=== PATIENT | female | born 1990 ===

== ENCOUNTER 2017-02-26 00:51 | Inpatient (IN) | payer MEDICAID, OTHER ==
--- NOTE | 2017-02-26 01:31 | ED PDOC ---
Arrival/HPI - General Time Seen by Provider: 02/26/17 00:59 Historian: Patient - History of Present Illness Narrative History of Present Illness (Text): 02/26/17 01:31 Ruben Ndiaye is a 26 year old female who presents to the ED brought in by EMS for possible overdose tonight. Patient states tonight she took multiple Midol tablets tonight, unable to give an exact number. Patient denies any fever, chills, chest pain, shortness of breath, nausea, vomiting, diarrhea, urinary symptoms, back pain, neck pain, headache, dizziness, or any other complaints. Time/Duration: Other (tonight) Symptom Course: Unchanged Activities at Onset: Rest, Light Context: Home Past Medical History - Provider Review Nursing Documentation Reviewed: Yes Family/Social History - Physician Review Nursing Documentation Reviewed: Yes Family/Social History: No Known Family HX Allergies/Home Meds Allergies/Adverse Reactions: Allergies No Known Allergies Allergy (Unverified 02/26/17 01:24) Home Medications: Home Meds Medication Instructions Recorded Confirmed No Known Home Med 02/26/17 02/26/17 Review of Systems - Physician Review All systems were reviewed & negative as marked: Yes - Review of Systems Constitutional: Normal. absent: Fevers Eyes: Normal ENT: Normal Respiratory: Normal. absent: SOB, Cough Cardiovascular: Normal. absent: Chest Pain Gastrointestinal: Normal. absent: Abdominal Pain, Diarrhea, Nausea, Vomiting Genitourinary Female: Normal. absent: Dysuria, Frequency, Hematuria, Urine Output Changes Musculoskeletal: Normal. absent: Back Pain, Neck Pain Skin: Normal. absent: Rash Neurological: Normal. absent: Headache, Dizziness Endocrine: Normal Hemo/Lymphatic: Normal Psychiatric: Normal Physical Exam Vital Signs Reviewed: Yes Vital Signs Temp Pulse Resp BP Pulse Ox 02/26/17 04:06 67 23 02/26/17 02:58 98.0 F 66 16 116/65 100 02/26/17 01:01 98.0 F 65 16 123/69 100 Temperature: Afebrile Blood Pressure: Normal Pulse: Regular Respiratory Rate: Normal Appearance: Positive for: Well-Appearing, Non-Toxic, Comfortable Pain Distress: None Mental Status: Positive for: Alert and Oriented X 3 - Systems Exam Head: Present: Atraumatic, Normocephalic Pupils: Present: PERRL Extroacular Muscles: Present: EOMI Conjunctiva: Present: Normal Mouth: Present: Moist Mucous Membranes Neck: Present: Normal Range of Motion Respiratory/Chest: Present: Clear to Auscultation, Good Air Exchange. No: Respiratory Distress, Accessory Muscle Use Cardiovascular: Present: Regular Rate and Rhythm, Normal S1, S2. No: Murmurs Abdomen: Present: Normal Bowel Sounds. No: Tenderness, Distention, Peritoneal Signs Back: Present: Normal Inspection Upper Extremity: Present: Normal Inspection. No: Cyanosis, Edema Lower Extremity: Present: Normal Inspection. No: Edema Neurological: Present: GCS=15, CN II-XII Intact, Speech Normal Skin: Present: Warm, Dry, Normal Color. No: Rashes Psychiatric: Present: Alert, Oriented x 3, Normal Insight, Normal Concentration Medical Decision Making ED Course and Treatment: 02/26/17 01:31 Impression: 26 year old female brought in for possible overdose. Differential Diagnosis include but are not limited to: overdose Plan: -- EKG -- Labs, alcohol level -- Urinalysis, urine durg screen -- Reassess and disposition Progress Notes: Reviewed EKG, sinus bradycardia at [address]-segment elevations or depressions, no T-wave inversions, normal intervals. 02/26/17 02:[address] Bryson, who is aware and agrees to evaluate pt for ICU admission. 02/26/17 03:[address] Bryson, present in ED to evaluate pt. Accepts pt in to hospitalist service. Pt will be admitted to the ICU for acetaminophen overdose. - Lab Interpretations Lab Results: 02/26/17 02:00 02/26/17 02:00 Lab Results 02/26/17 02:00: WBC 6.9, RBC 4.27, Hgb 13.1, Hct 37.4, MCV 87.6, MCH 30.7, MCHC 35.0, RDW 12.9, Plt Count 336, MPV 9.1, Gran % 66.0, Lymph % (Auto) 28.4, [place] % (Auto) 5.4, Eos % (Auto) 0.1 L, Baso % (Auto) 0.1, Gran # 4.54, Lymph # 2.0, [place] # 0.4, Eos # 0.0, Baso # 0.01, Sodium 138, Potassium 4.0, Chloride 106, Carbon Dioxide 22, Anion Gap 14, BUN 10, Creatinine 0.8, Est GFR ( Amer) > 60, Est GFR (Non-Af Amer) > 60, Random Glucose 96, Calcium 9.3, Total Bilirubin 0.5, AST 27, ALT 12, Alkaline Phosphatase 89, Total Protein 8.0, Albumin 4.2, Globulin 3.8, Albumin/Globulin Ratio 1.1, Salicylates < 1 L, Acetaminophen 54.0 H*, Alcohol, Quantitative < 10 02/26/17 01:50: Urine Color Yellow, Urine Appearance Clear, Urine pH 6.0, Ur Specific [place] 1.025, Urine Protein Negative, Urine Glucose (UA) Negative, Urine Ketones Negative, Urine Blood Moderate H, Urine Nitrate Negative, Urine Bilirubin Negative, Urine Urobilinogen 0.2, Ur Leukocyte Esterase Negative, Urine RBC 0 - 2, Urine WBC 1 - 3, Ur Epithelial Cells 3 - 4, Urine Bacteria Small, Urine HCG, Qual Negative, Urine Opiates Screen Negative, Urine Methadone Screen Negative, Ur Barbiturates Screen Negative, Ur Phencyclidine Scrn Negative , Ur Amphetamines Screen Negative, U Benzodiazepines Scrn Negative, U Oth Cocaine Metabols Negative, U Cannabinoids Screen Negative I have reviewed the lab results: Yes - EKG Interpretation Interpreted by ED Physician: Yes Type: 12 lead EKG - Medication Orders Current Medication Orders: Sodium Chloride (Sodium Chloride 0.9%) 1,000 mls @ 125 mls/hr IV .Q8H [facility] Last Admin: 02/26/17 15:00 Dose: 125 MLS/HR eMAR Start Stop Document 02/26/17 15:00 HUDSON (Rec: 02/26/17 17:56 HUDSON [id number]) Intravenous Solution Start Date 02/26/17 Start Time 15:00 End Date 02/26/17 Ketorolac Tromethamine (Toradol) 15 mg IVP DAILY PRN PRN Reason: Pain, severe (8-10) Pantoprazole Sodium (Protonix Inj) 40 mg IVP DAILY [facility] Last Admin: 02/26/17 09:13 Dose: 40 MG IVP Administration Document 02/26/17 09:13 HUDSON (Rec: 02/26/17 09:13 HUDSON [id number]) Charges for Administration # of IVP Administrations 1 Discontinued Medications Acetylcysteine 8,800 mg/ (Dextrose) 244 mls @ 200 mls/hr IV .Q1H14M ONE Stop: 02/26/17 03:49 Last Admin: 02/26/17 03:41 Dose: 200 MLS/HR eMAR Start Stop Document 02/26/17 03:41 RJR (Rec: 02/26/17 03:41 RJR [id number]) Intravenous Solution Start Date 02/26/17 Start Time 03:41 End Date 02/26/17 End time 04:41 Total Infusion Time 60 Acetylcysteine 2,900 mg/ (Dextrose) 514.5 mls @ 125 mls/hr IV .Q4H7M ONE Stop: 02/26/17 06:44 Last Admin: 02/26/17 04:44 Dose: 125 MLS/HR eMAR Start Stop Document 02/26/17 04:44 AOM (Rec: 02/26/17 04:45 AOM [id number]) Intravenous Solution Start Date 02/26/17 Start Time 04:44 End Date 02/26/17 End time 08:51 Total Infusion Time 247 Acetylcysteine 5,900 mg/ (Dextrose) 1,029.5 mls @ 62.5 mls/hr IV .[id number] ONE Stop: 02/26/17 19:07 Last Admin: 02/26/17 08:51 Dose: 62.5 MLS/HR eMAR Start Stop Document 02/26/17 08:51 CRUZE (Rec: 02/26/17 09:20 CRUZE [id number]) Intravenous Solution Start Date 02/26/17 Start Time 08:51 End Date 02/27/17 End time 01:20 Total Infusion Time 989 Ketorolac Tromethamine (Toradol) 15 mg IVP Q6 PRN PRN Reason: Pain, moderate (4-7) Ketorolac Tromethamine (Toradol) 15 mg IVP DAILY PRN PRN Reason: Pain, moderate (4-7) Ondansetron HCl (Zofran Inj) 4 mg IVP ONCE ONE Stop: 02/26/17 04:49 Last Admin: 02/26/17 04:59 Dose: 4 MG IVP Administration Document 02/26/17 04:59 AOM (Rec: 02/26/17 04:59 AOM [id number]) Charges for Administration # of IVP Administrations 1 - Scribe Statement The provider has reviewed the documentation as recorded by the Bryan Sharma Provider Attestation: All medical record entries made by the Gracielaibarthur were at my direction and personally dictated by me. I have reviewed the chart and agree that the record accurately reflects my personal performance of the history, physical exam, medical decision making, and the department course for this patient. I have also personally directed, reviewed, and agree with the discharge instructions and disposition. Disposition/Present on Arrival - Present on Arrival Any Indicators Present on Arrival: No - Disposition Have Diagnosis and Disposition been Completed?: Yes Diagnosis: Acetaminophen overdose Disposition: HOSPITALIZED Disposition Time: 03:00 Condition: SERIOUS
[2017-02-26 02:13] LABS: ADD MANUAL DIFF? NO
[2017-02-26 02:21] LABS: BASO # 0.01 K/mm3 (0.0-2.0); BASO % 0.1 % (0.0-3.0); EOS % 0.1 % (1.5-5.0); GRAN # 4.54 (1.4-6.5); HEMATOCRIT 37.4 % (36.0-48.0); LYMPH % 28.4 % (22.0-35.0); MEAN CELL VOLUME 87.6 fL (80.0-105.0); MEAN CORPUSCULAR HEMOGLOBIN 30.7 pg (25.0-35.0); MEAN PLATELET VOLUME 9.1 fl (7.0-11.0); MONO # 0.4 (0.1-0.6); MONO % 5.4 % (1.0-6.0); PLATELET COUNT 336 10^3/uL (120.0-450.0); RED CELL DISTRIBUTION WIDTH 12.9 % (11.5-14.5); WHITE BLOOD COUNT 6.9 10^3/ul (4.5-11.0)
[2017-02-26 02:22] LABS: URINE BILIRUBIN NEGATIVE (NEGATIVE); URINE BLOOD MODERATE (NEGATIVE); URINE GLUCOSE (UA) NEGATIVE (NEGATIVE); URINE KETONE NEGATIVE (NEGATIVE); URINE LEUKOCYTE ESTERASE NEGATIVE Leu/uL (NEGATIVE); URINE PROTEIN NEGATIVE mg/dL (<30 mg/dL); URINE UROBILINOGEN 0.2 E.U./dL (<1 E.U./dL)
[2017-02-26 02:23] LABS: URINE APPEARANCE CLEAR (CLEAR); URINE COLOR YELLOW (YELLOW)
[2017-02-26 02:29] LABS: ALB/GLOB RATIO 1.1 (1.1-1.8); ALKALINE PHOSPHATASE 89 U/L (38-133); ALT/SGPT 12 U/L (7-56); AST/SGOT 27 U/L (15-39); BILIRUBIN,TOTAL 0.5 mg/dL (0.2-1.3); BLOOD UREA NITROGEN 10 mg/dL (7-21); CALCIUM 9.3 mg/dL (8.4-10.5); CARBON DIOXIDE 22 mmol/L (21-33); CHLORIDE 106 mmol/L (98-107); GFR AFRICAN-AMERICAN > 60; GLUCOSE,RANDOM 96 mg/dL (70-110); SODIUM 138 mmol/L (132-148)
[2017-02-26 02:35] LABS: URINE BACTERIA SMALL (NEG); URINE RBC 0 - 2 /hpf (0-2)
[2017-02-26] MEDS ORDERED: ACETYLCYSTEINE IV ONE ×3 (02:36→02:39)
[2017-02-26] MEDS ORDERED: WATER IV ONE ×3 (02:36→02:39)
[2017-02-26] MEDS ORDERED: DEXTROSE 5% IV ONE ×3 (02:36→02:39)
--- NOTE | 2017-02-26 03:14 | CP.PCM.CON ---
History of Present Illness - History of Present Illness History of Present Illness: This is a 26 yo female with no medical hx presenting with tylenol overdose. The pt has had menstrual cramps for the past day. At 6 PM night of evaluation she began taking midol and tylenol at the same time. She says she took 5 midol tablets, cannot say how much tylenol. She denies trying to commit suicide. Denies trying to commit suicide in past. Denies fevers, chills, vomiting, diarrhea, syncope, chest pain, abdominal pain. Accepted for ICU admission. PMH: None PSH: None Allergies: NKDA Home meds: none FH: Denies Social hx: Denies smoking. Denies drinking. Denies drug use. Review of Systems - Review of Systems All systems: reviewed and no additional remarkable complaints except Review of Systems: Negative except as per HPI. Past Patient History - Infectious Disease Hx of Infectious Diseases: None - Tetanus Immunizations Tetanus Immunization: Unknown - Past Medical History & Family History Past Medical History?: No Past Family History: Reviewed and not pertinent - Past Social History Smoking Status: Never Smoked Chewing Tobacco Use: No Cigar Use: No Alcohol: None Drugs: Denies Home Situation {Lives}: With Family Domestic Violence: Negative - PSYCHIATRIC Hx Substance Use: No - SURGICAL HISTORY Hx Surgeries: No Meds Allergies/Adverse Reactions: Allergies Allergy/AdvReac Type Severity Reaction Status Date / Time No Known Allergies Allergy Unverified 02/26/17 01:24 - Medications Medications: Current Medications Acetylcysteine 8,800 mg/ (Dextrose) 244 mls @ 200 mls/hr IV .Q1H14M ONE Stop: 02/26/17 03:49 Acetylcysteine 2,900 mg/ (Dextrose) 514.5 mls @ 125 mls/hr IV .Q4H7M ONE Stop: 02/26/17 06:44 Acetylcysteine 5,900 mg/ (Dextrose) 1,029.5 mls @ 62.5 mls/hr IV .[id number] ONE Stop: 02/26/17 19:07 Sodium Chloride (Sodium Chloride 0.9%) 1,000 mls @ 125 mls/hr IV .Q8H [facility] Ketorolac Tromethamine (Toradol) 15 mg IVP Q6 PRN PRN Reason: Pain, moderate (4-7) Pantoprazole Sodium (Protonix Inj) 40 mg IVP DAILY [facility] Physical Exam - Constitutional Appears: Non-toxic, No Acute Distress - Head Exam Head Exam: ATRAUMATIC, NORMAL INSPECTION, NORMOCEPHALIC - Eye Exam Eye Exam: EOMI - ENT Exam ENT Exam: Mucous Membranes Moist - Neck Exam Neck exam: Positive for: Normal Inspection - Respiratory Exam Respiratory Exam: Clear to Auscultation Bilateral, NORMAL BREATHING PATTERN - Cardiovascular Exam Cardiovascular Exam: REGULAR RHYTHM - GI/Abdominal Exam GI & Abdominal Exam: Normal Bowel Sounds, Soft. absent: Tenderness - Extremities Exam Extremities exam: Positive for: normal inspection - Back Exam Back exam: NORMAL INSPECTION - Neurological Exam Neurological exam: Alert, Oriented x3 - Psychiatric Exam Psychiatric exam: Normal Affect, Normal Mood - Skin Skin Exam: Dry, Intact, Normal Color, Warm Results - Vital Signs Recent Vital Signs: Last Vital Signs Temp 98.0 F 02/26/17 02:58 Pulse 66 02/26/17 02:58 Resp 16 02/26/17 02:58 BP 116/65 02/26/17 02:58 Pulse Ox 100 02/26/17 02:58 - Labs Result Diagrams: 02/26/17 02:00 02/26/17 02:00 Labs: Laboratory Results - last 24 hr 02/26/17 02/26/17 01:50 02:00 WBC 6.9 RBC 4.27 Hgb 13.1 Hct 37.4 MCV 87.6 MCH 30.7 MCHC 35.0 RDW 12.9 Plt Count 336 MPV 9.1 Gran % 66.0 Lymph % (Auto) 28.4 [place] % (Auto) 5.4 Eos % (Auto) 0.1 L Baso % (Auto) 0.1 Gran # 4.54 Lymph # 2.0 [place] # 0.4 Eos # 0.0 Baso # 0.01 Sodium 138 Potassium 4.0 Chloride 106 Carbon Dioxide 22 Anion Gap 14 BUN 10 Creatinine 0.8 Est GFR ( Amer) > 60 Est GFR (Non-Af Amer) > 60 Random Glucose 96 Calcium 9.3 Total Bilirubin 0.5 AST 27 ALT 12 Alkaline Phosphatase 89 Total Protein 8.0 Albumin 4.2 Globulin 3.8 Albumin/Globulin Ratio 1.1 Urine Color Yellow Urine Appearance Clear Urine pH 6.0 Ur Specific [place] 1.025 Urine Protein Negative Urine Glucose (UA) Negative Urine Ketones Negative Urine Blood Moderate H Urine Nitrate Negative Urine Bilirubin Negative Urine Urobilinogen 0.2 Ur Leukocyte Esterase Negative Urine RBC 0 - 2 Urine WBC 1 - 3 Ur Epithelial Cells 3 - 4 Urine Bacteria Small Urine HCG, Qual Negative Salicylates < 1 L Urine Opiates Screen Negative Urine Methadone Screen Negative Acetaminophen 54.0 H* Ur Barbiturates Screen Negative Ur Phencyclidine Scrn Negative Ur Amphetamines Screen Negative U Benzodiazepines Scrn Negative U Oth Cocaine Metabols Negative U Cannabinoids Screen Negative Alcohol, Quantitative < 10 Assessment & Plan - Assessment and Plan (Free Text) Assessment: This is a 26 yo female with no past medical hx presenting with suspected tylenol overdose, admitted to ICU for closer observation 1. Tylenol overdose -tylenol level 54 -alcohol < 10 -urine drug screen otherwise negative -urine negative -NS 125 cc/hr -IV mucomyst -q4 LFTs -q4 INR -LFTs normal as of now -q4 tylenol level -we will make pt npo -toradol for pain -admission to icu for closer observation 2. GI/DVT ppx -SCDs -protonix daily dw Dr. Bryson
[2017-02-26] MEDS: Sodium Chloride 0.9% 1,000 ML IV SCH ×3 (03:41→20:11)
--- NOTE | 2017-02-26 03:53 | CP.PCM.HP ---
<Basim Odell - Last Filed: 02/26/17 03:54> History of Present Illness - History of Present Illness History of Present Illness: This is a 26 yo female with no medical hx presenting with tylenol overdose. The pt has had menstrual cramps for the past day. At 6 PM night of evaluation she began taking midol and tylenol at the same time. She says she took 5 midol tablets, cannot say how much tylenol. She denies trying to commit suicide. Denies trying to commit suicide in past. Denies fevers, chills, vomiting, diarrhea, syncope, chest pain, abdominal pain. Accepted for ICU admission. PMH: None PSH: None Allergies: NKDA Home meds: none FH: Denies Social hx: Denies smoking. Denies drinking. Denies drug use. Present on Admission - Present on Admission Any Indicators Present on Admission: No History of DVT/PE: No History of Uncontrolled Diabetes: No Urinary Catheter: No Decubitus Ulcer Present: No Review of Systems - Review of Systems All systems: reviewed and no additional remarkable complaints except Review of Systems: Negative except as stated in HPI Past Patient History - Infectious Disease Hx of Infectious Diseases: None - Tetanus Immunizations Tetanus Immunization: Unknown - Past Medical History & Family History Past Medical History?: No Past Family History: Reviewed and not pertinent - Past Social History Smoking Status: Never Smoked Chewing Tobacco Use: No Cigar Use: No Alcohol: None Drugs: Denies Home Situation {Lives}: With Family Domestic Violence: Negative - PSYCHIATRIC Hx Substance Use: No - SURGICAL HISTORY Hx Surgeries: No Meds Allergies/Adverse Reactions: Allergies Allergy/AdvReac Type Severity Reaction Status Date / Time No Known Allergies Allergy Unverified 02/26/17 01:24 Physical Exam - Constitutional Appears: Non-toxic, No Acute Distress - Head Exam Head Exam: ATRAUMATIC, NORMAL INSPECTION, NORMOCEPHALIC - Eye Exam Eye Exam: EOMI - ENT Exam ENT Exam: Mucous Membranes Moist - Neck Exam Neck exam: Positive for: Normal Inspection - Respiratory Exam Respiratory Exam: Clear to Auscultation Bilateral, NORMAL BREATHING PATTERN - Cardiovascular Exam Cardiovascular Exam: REGULAR RHYTHM - GI/Abdominal Exam GI & Abdominal Exam: Normal Bowel Sounds, Soft. absent: Tenderness - Extremities Exam Extremities exam: Positive for: normal inspection - Back Exam Back exam: NORMAL INSPECTION - Neurological Exam Neurological exam: Alert, Oriented x3 - Psychiatric Exam Psychiatric exam: Normal Affect, Normal Mood - Skin Skin Exam: Dry, Intact, Normal Color, Warm Results - Vital Signs Recent Vital Signs: Last Vital Signs Temp 98.0 F 02/26/17 02:58 Pulse 66 02/26/17 02:58 Resp 16 02/26/17 02:58 BP 116/65 02/26/17 02:58 Pulse Ox 100 02/26/17 02:58 - Labs Result Diagrams: 02/26/17 02:00 02/26/17 02:00 Assessment & Plan - Assessment and Plan (Free Text) Assessment: This is a 26 yo female with no past medical hx presenting with suspected tylenol overdose, admitted to ICU for closer observation 1. Tylenol overdose -tylenol level 54 -alcohol < 10 -urine drug screen otherwise negative -urine negative -NS 125 cc/hr -IV mucomyst -q4 LFTs -q4 INR -LFTs normal as of now -q4 tylenol level -we will make pt npo -toradol for pain -admission to icu for closer observation 2. GI/DVT ppx -SCDs -protonix daily dw Dr. Bryson <Adelaide GRIMALDO,Morgan - Last Filed: 02/27/17 07:52> Results - Vital Signs Recent Vital Signs: Last Vital Signs Temp 97.6 F 02/27/17 04:00 Pulse 52 L 02/27/17 04:17 Resp 18 02/27/17 04:00 BP 124/56 L 02/27/17 04:00 Pulse Ox 100 02/27/17 04:00 - Labs Result Diagrams: 02/27/17 05:30 02/27/17 05:30 Labs: Laboratory Results - last 24 hr 02/26/17 02/26/17 02/26/17 11:14 11:34 14:00 WBC RBC Hgb Hct MCV MCH MCHC RDW Plt Count MPV Gran % Lymph % (Auto) [place] % (Auto) Eos % (Auto) Baso % (Auto) Gran # Lymph # [place] # Eos # Baso # PT 12.5 H 12.3 H INR 1.16 H 1.14 H pO2 44 VBG pH 7.29 L VBG pCO2 49.0 VBG HCO3 23.6 VBG Total CO2 25.1 VBG O2 Sat (Calc) 80.5 H VBG Base Excess -3.4 L VBG Potassium 3.9 Glucose 90 Lactate 1.6 FiO2 21.0 Sodium 143 140.0 Potassium 3.8 Chloride 107 113.0 H Carbon Dioxide 20 L Anion Gap 20 BUN 7 Creatinine 0.6 Est GFR ( Amer) > 60 Est GFR (Non-Af Amer) > 60 POC Glucose (mg/dL) 95 Random Glucose 80 Calcium 9.0 Phosphorus Magnesium Total Bilirubin 0.5 Direct Bilirubin AST 18 ALT 8 Alkaline Phosphatase 43 Total Protein 7.5 Albumin 3.9 Globulin 3.7 Albumin/Globulin Ratio 1.1 TSH 3rd Generation 1.62 Venous Blood Potassium 3.9 Acetaminophen < 10.0 L < 10.0 L 02/26/17 02/26/17 02/27/17 16:15 23:30 05:30 WBC 6.3 RBC 3.96 Hgb 12.1 Hct 35.5 L MCV 89.6 MCH 30.6 MCHC 34.1 RDW 13.4 Plt Count 299 MPV 9.4 Gran % 46.5 L Lymph % (Auto) 45.8 H [place] % (Auto) 6.2 H Eos % (Auto) 1.0 L Baso % (Auto) 0.5 Gran # 2.93 Lymph # 2.9 [place] # 0.4 Eos # 0.1 Baso # 0.03 PT 12.1 H 11.5 11.7 INR 1.12 H 1.06 1.08 pO2 60 H 79 H VBG pH 7.36 7.25 L VBG pCO2 39.0 L 51.0 VBG HCO3 22.0 22.4 VBG Total CO2 23.2 24.0 VBG O2 Sat (Calc) 93.0 H 97.5 H VBG Base Excess -3.1 L -5.2 L VBG Potassium 4.3 4.0 Glucose 99 78 Lactate 1.1 1.7 FiO2 21.0 21.0 Sodium 138 139 141 Potassium 4.2 4.5 4.3 Chloride 110 H 107 108 Carbon Dioxide 21 22 22 Anion Gap 11 15 15 BUN 11 10 10 Creatinine 0.7 0.8 0.7 Est GFR ( Amer) > 60 > 60 > 60 Est GFR (Non-Af Amer) > 60 > 60 > 60 POC Glucose (mg/dL) Random Glucose 99 65 L 79 Calcium 8.8 9.1 9.0 Phosphorus 3.4 Magnesium 1.8 Total Bilirubin 0.3 0.3 0.3 Direct Bilirubin 0.3 AST 15 16 15 ALT 12 18 19 Alkaline Phosphatase 50 55 59 Total Protein 6.7 7.0 7.0 Albumin 3.5 3.8 3.8 Globulin 3.2 3.2 3.2 Albumin/Globulin Ratio 1.1 1.2 1.2 TSH 3rd Generation Venous Blood Potassium 4.3 4.0 Acetaminophen < 10.0 L < 10.0 L < 10.0 L Attending/Attestation - Attestation I have personally seen and examined this patient.: Yes I have fully participated in the care of the patient.: Yes I have reviewed all pertinent clinical information: Yes Notes (Text): 02/27/17 07:51 -I agree with the above H&P completed by the resident physician. -Briefly, the patient is a 26 year old woman with no past medical history, admitted to the ICU for unintentional Tylenol overdose. Poison control has been notified and she has been started on Mucomyst protocol therapy. We will monitor serial Tylenol levels and LFT's
[2017-02-26 04:42] VITALS: BMI 21.7
[2017-02-26 06:45] LABS: ALB/GLOB RATIO 1.1 (1.1-1.8); ALT/SGPT 8 U/L (7-56); AST/SGOT 16 U/L (15-39); BILIRUBIN,TOTAL 0.4 mg/dL (0.2-1.3); BLOOD UREA NITROGEN 7 mg/dL (7-21); CALCIUM 8.6 mg/dL (8.4-10.5); CARBON DIOXIDE 23 mmol/L (21-33); CHLORIDE 105 mmol/L (98-107); GFR AFRICAN-AMERICAN > 60; GLUCOSE,RANDOM 103 mg/dL (70-110); INR 1.07 (0.93-1.08); POTASSIUM 3.7 mmol/L (3.6-5.0); SODIUM 139 mmol/L (132-148); TOTAL PROTEIN 7.5 g/dL (5.8-8.3)
[2017-02-26 06:47] LABS: ALKALINE PHOSPHATASE < 20 U/L (38-133)
--- NOTE | 2017-02-26 07:14 | CP.CCUPN ---
Addendum entered and electronically signed by Dorie Krishna DO 02/26/17 13:32: Patient does not appear to require liver transplant at current time, MELD score is 7 today. GI consult eval is pending for definite determination. Will continue to monitor as stated below. Will followup GI recs. Original Note: <Dorie Krishna - Last Filed: 02/26/17 11:56> CCU Subjective - Physician Review Events Since Last Encounter (Free Text): 02/26/17 07:14 Patient seen and examined bedside. No acute events overnight. Patient denies CP , SOB, abd pain, n/v, diaphoresis, headache, dizziness, malaise, fatigue, difficulty urinating, skin color changes, rashes. Patient states she is hungry and would like to eat. As per nursing, patient vomited once in ER, no recurrence. Critical Care Time Spent (in minutes): 40 CCU Objective - Vital Signs / Intake & Output Vital Signs (Last 4 hours): Vital Signs Temp Pulse Pulse Resp BP Pulse Ox 02/26/17 04:17 97.8 F 54 L 54 L 18 122/65 100 02/26/17 04:09 56 L 57 H 122/65 100 02/26/17 04:08 65 21 02/26/17 04:07 98 F 64 21 108/70 100 02/26/17 04:06 67 23 Intake and Output (Last 8hrs): Intake & Output 02/25/17 02/26/17 02/26/17 22:59 06:59 14:59 Intake Total 0 Balance 0 Weight 134 lb 8 oz Intake: Oral 0 - Physical Exam Head: Positive for: Atraumatic, Normocephalic Pupils: Positive for: PERRL Extroacular Muscles: Positive for: EOMI. Negative for: Gaze Palsy Conjunctiva: Positive for: Normal. Negative for: Icteric Mouth: Positive for: Moist Mucous Membranes Neck: Positive for: Normal Range of Motion Respiratory/Chest: Positive for: Clear to Auscultation, Good Air Exchange. Negative for: Respiratory Distress, Accessory Muscle Use Cardiovascular: Positive for: Regular Rate and Rhythm, Normal S1, S2. Negative for: Murmurs Abdomen: Positive for: Normal Bowel Sounds. Negative for: Tenderness, Distention, Peritoneal Signs Back: Positive for: Normal Inspection Upper Extremity: Positive for: Normal Inspection. Negative for: Cyanosis, Edema Lower Extremity: Positive for: Normal Inspection. Negative for: Edema Neurological: Positive for: GCS=15, CN II-XII Intact, Speech Normal Skin: Positive for: Warm, Dry, Normal Color. Negative for: Rashes Psychiatric: Positive for: Alert, Oriented x 3, Normal Insight, Normal Concentration - Medications Active Medications: Active Medications Generic Name Dose Route Start Last Admin Trade Name Freq PRN Reason Stop Dose Admin Acetylcysteine 5,900 mg/ 1,029.5 mls @ 62.5 mls/hr 02/26/17 02:39 Dextrose IV 02/26/17 19:07 .[id number] ONE Sodium Chloride 1,000 mls @ 125 mls/hr 02/26/17 03:15 02/26/17 03:41 Sodium Chloride 0.9% IV 125 mls/hr .Q8H GARCIA Administration Ketorolac Tromethamine 15 mg 02/26/17 03:10 Toradol IVP Q6 PRN Pain, moderate (4-7) Pantoprazole Sodium 40 mg 02/26/17 10:00 Protonix Inj IVP DAILY GARCIA - Patient Studies Lab Studies: Lab Studies 02/26/17 Range/Units 06:00 PT 11.6 (9.9-11.8) Seconds INR 1.07 (0.93-1.08) Sodium 139 (132-148) mmol/L Potassium 3.7 (3.6-5.0) mmol/L Chloride 105 (98-107) mmol/L Carbon Dioxide 23 (21-33) mmol/L Anion Gap 15 (10-20) BUN 7 (7-21) mg/dL Creatinine 0.7 (0.5-1.4) mg/dL Est GFR ( Amer) > 60 Est GFR (Non-Af Amer) > 60 Random Glucose 103 (70-110) mg/dL Calcium 8.6 (8.4-10.5) mg/dL Total Bilirubin 0.4 (0.2-1.3) mg/dL AST 16 (15-39) U/L ALT 8 (7-56) U/L Alkaline Phosphatase < 20 L (38-133) U/L Total Protein 7.5 (5.8-8.3) g/dL Albumin 3.9 (3.0-4.8) g/dL Globulin 3.6 gm/dL Albumin/Globulin Ratio 1.1 (1.1-1.8) Acetaminophen 24.0 H (10.0-20.0) ug/ml Laboratory Results - last 24 hr 02/26/17 06:00 PT 11.6 INR 1.07 Sodium 139 Potassium 3.7 Chloride 105 Carbon Dioxide 23 Anion Gap 15 BUN 7 Creatinine 0.7 Est GFR ( Amer) > 60 Est GFR (Non-Af Amer) > 60 Random Glucose 103 Calcium 8.6 Total Bilirubin 0.4 AST 16 ALT 8 Alkaline Phosphatase < 20 L Total Protein 7.5 Albumin 3.9 Globulin 3.6 Albumin/Globulin Ratio 1.1 Acetaminophen 24.0 H Review of Systems - Constitutional Constitutional: absent: Fever, Chills, Sweats, Weakness, Malaise - EENT Eyes: absent: Blurred Vision, Change in Vision, Diplopia Ears: absent: Disequilibrium, Dizziness - Cardiovascular Cardiovascular: absent: Chest Pain, Chest Pain at Rest, Diaphoresis, Dyspnea, Dyspnea on Exertion, Lightheadedness, Palpitations - Respiratory Respiratory: absent: Cough, Dyspnea, Pain on Inspiration - Gastrointestinal Gastrointestinal: absent: Abdominal Pain, Diarrhea, Hematemesis, Hematochezia, Nausea, Vomiting - Genitourinary Genitourinary: absent: Dysuria - Reproductive: Female Reproductive:Female: Currently Menstual - Menstruation Menstruation: Currently Menstual - Musculoskeletal Musculoskeletal: absent: Arthralgias, Muscle Cramps, Muscle Weakness, Myalgias, Numbness, Stiffness, Tingling - Integumentary Integumentary: absent: New Lesions, Rash, Jaundice - Neurological Neurological: absent: Dizziness, Focal Weakness, Headaches, Lack of Coordination , Loss of Vision, Memory Loss, Paresthesias, Weakness - Psychiatric Psychiatric: absent: Anxiety, Confusion - Endocrine Endocrine: absent: Fatigue, Palpitations Critical Care Progress Note - Ventilator Checklist PUD Prophalyxis: Yes DVT Prophylaxis: Yes - Prophylaxis GI Prophylaxis GI: PPI - Prophylaxis DVT Prophylaxis DVT: SCDs Assessment/Plan - Assessment and Plan (Free Text) Assessment: 26 yo F with no sig PMHx admitted to ICU for observation with Tylenol overdose. Plan: Neuro: AAOx3, NAD. Continue monitoring mental status for encephalopathy Maintain normothermia CV: No significant changes on EKG Pulm: No acute issues. Doing well on Room air, spo2 in high 90s-100% GI: Acute acetaminophen toxicity MELD score 7 (1.9% 3-month mortality). No need for transfer to [facility] for liver transplant evaluation. LFTs within normal limits. Continue to monitor. No coagulopathy, jaundice, hypoglycemia, hepatic encephalopathy, significant acidosis. No signs of shock. Continue to monitor for these Acetaminiphen level down to 24 from 54. Continue to monitor. 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 Continue to monitor renal function, Endo: No acute issues Maintain euglycemia 140-180 ID: Afebrile, no leukocytosis, no signs of infection DVT/GI ppx: SCDs, protonix, HHD - Date & Time Date: 02/26/17 Time: 09:15 <Kemar Gillis - Last Filed: 02/26/17 13:56> CCU Objective - Vital Signs / Intake & Output Intake and Output (Last 8hrs): Intake & Output 02/25/17 02/26/17 02/26/17 22:59 06:59 14:59 Intake Total 580 Output Total 0 Balance 580 Weight 134 lb 8 oz Intake: IV 580 Right Antecubital 580 Oral 0 Output: Stool 0 - Medications Active Medications: Active Medications Generic Name Dose Route Start Last Admin Trade Name Freq PRN Reason Stop Dose Admin Acetylcysteine 5,900 mg/ 1,029.5 mls @ 62.5 mls/hr 02/26/17 02:39 02/26/17 08: 51 Dextrose IV 02/26/17 19:07 62.5 mls/hr .[id number] ONE Administration Sodium Chloride 1,000 mls @ 125 mls/hr 02/26/17 03:15 02/26/17 03:41 Sodium Chloride 0.9% IV 125 mls/hr .Q8H GARCIA Administration Ketorolac Tromethamine 15 mg 02/26/17 12:02 Toradol IVP DAILY PRN Pain, severe (8-10) Pantoprazole Sodium 40 mg 02/26/17 10:00 02/26/17 09:13 Protonix Inj IVP 40 mg DAILY GARCIA Administration - Patient Studies Lab Studies: Lab Studies 02/26/17 02/26/17 02/26/17 Range/Units 11:34 11:14 07:39 PT 12.5 H (9.9-11.8) Seconds INR 1.16 H (0.93-1.08) pCO2 37 (35-45) mm/Hg pO2 107.0 H (80-100) mm/Hg HCO3 21.9 (21-28) mmol/L ABG pH 7.38 (7.35-7.45) ABG Total CO2 23.0 (22-28) mmol.L ABG O2 Saturation 99.2 H (95-98) % ABG Base Excess -2.8 L (-2.0-3.0) mmol/L ABG Potassium 3.4 L (3.6-5.2) mmol/L Glucose 110 H (65-105) mg/dl Lactate 0.6 L (0.7-2.1) mmol/L FiO2 21.0 % Sodium 143 137.0 (132-148) mmol/L Potassium 3.8 (3.6-5.0) mmol/L Chloride 107 111.0 H (98-107) mmol/L Carbon Dioxide 20 L (21-33) mmol/L Anion Gap 20 (10-20) BUN 7 (7-21) mg/dL Creatinine 0.6 (0.5-1.4) mg/dL Est GFR ( Amer) > 60 Est GFR (Non-Af Amer) > 60 POC Glucose (mg/dL) 95 (65-110) mg/dL Random Glucose 80 (70-110) mg/dL Calcium 9.0 (8.4-10.5) mg/dL Total Bilirubin 0.5 (0.2-1.3) mg/dL AST 18 (15-39) U/L ALT 8 (7-56) U/L Alkaline Phosphatase 43 (38-133) U/L Total Protein 7.5 (5.8-8.3) g/dL Albumin 3.9 (3.0-4.8) g/dL Globulin 3.7 gm/dL Albumin/Globulin Ratio 1.1 (1.1-1.8) TSH 3rd Generation 1.62 (0.46-4.68) mIU/mL Arterial Blood Potassium 3.4 L (3.6-5.2) mmol/L Acetaminophen < 10.0 L (10.0-20.0) ug/ml 02/26/17 02/26/17 Range/Units 07:16 06:00 PT 11.6 (9.9-11.8) Seconds INR 1.07 (0.93-1.08) pCO2 (35-45) mm/Hg pO2 (80-100) mm/Hg HCO3 (21-28) mmol/L ABG pH (7.35-7.45) ABG Total CO2 (22-28) mmol.L ABG O2 Saturation (95-98) % ABG Base Excess (-2.0-3.0) mmol/L ABG Potassium (3.6-5.2) mmol/L Glucose (65-105) mg/dl Lactate (0.7-2.1) mmol/L FiO2 % Sodium 139 (132-148) mmol/L Potassium 3.7 (3.6-5.0) mmol/L Chloride 105 (98-107) mmol/L Carbon Dioxide 23 (21-33) mmol/L Anion Gap 15 (10-20) BUN 7 (7-21) mg/dL Creatinine 0.7 (0.5-1.4) mg/dL Est GFR ( Amer) > 60 Est GFR (Non-Af Amer) > 60 POC Glucose (mg/dL) 113 H (65-110) mg/dL Random Glucose 103 (70-110) mg/dL Calcium 8.6 (8.4-10.5) mg/dL Total Bilirubin 0.4 (0.2-1.3) mg/dL AST 16 (15-39) U/L ALT 8 (7-56) U/L Alkaline Phosphatase < 20 L (38-133) U/L Total Protein 7.5 (5.8-8.3) g/dL Albumin 3.9 (3.0-4.8) g/dL Globulin 3.6 gm/dL Albumin/Globulin Ratio 1.1 (1.1-1.8) TSH 3rd Generation (0.46-4.68) mIU/mL Arterial Blood Potassium (3.6-5.2) mmol/L Acetaminophen 24.0 H (10.0-20.0) ug/ml Laboratory Results - last 24 hr 02/26/17 02/26/17 02/26/17 06:00 07:16 07:39 PT 11.6 INR 1.07 pCO2 37 pO2 107.0 H HCO3 21.9 ABG pH 7.38 ABG Total CO2 23.0 ABG O2 Saturation 99.2 H ABG Base Excess -2.8 L ABG Potassium 3.4 L Glucose 110 H Lactate 0.6 L FiO2 21.0 Sodium 139 137.0 Potassium 3.7 Chloride 105 111.0 H Carbon Dioxide 23 Anion Gap 15 BUN 7 Creatinine 0.7 Est GFR ( Amer) > 60 Est GFR (Non-Af Amer) > 60 POC Glucose (mg/dL) 113 H Random Glucose 103 Calcium 8.6 Total Bilirubin 0.4 AST 16 ALT 8 Alkaline Phosphatase < 20 L Total Protein 7.5 Albumin 3.9 Globulin 3.6 Albumin/Globulin Ratio 1.1 TSH 3rd Generation Arterial Blood Potassium 3.4 L Acetaminophen 24.0 H 02/26/17 02/26/17 11:14 11:34 PT 12.5 H INR 1.16 H pCO2 pO2 HCO3 ABG pH ABG Total CO2 ABG O2 Saturation ABG Base Excess ABG Potassium Glucose Lactate FiO2 Sodium 143 Potassium 3.8 Chloride 107 Carbon Dioxide 20 L Anion Gap 20 BUN 7 Creatinine 0.6 Est GFR ( Amer) > 60 Est GFR (Non-Af Amer) > 60 POC Glucose (mg/dL) 95 Random Glucose 80 Calcium 9.0 Total Bilirubin 0.5 AST 18 ALT 8 Alkaline Phosphatase 43 Total Protein 7.5 Albumin 3.9 Globulin 3.7 Albumin/Globulin Ratio 1.1 TSH 3rd Generation 1.62 Arterial Blood Potassium Acetaminophen < 10.0 L EKG/Cardiology Studies: Cardiology / EKG Studies 02/26/17 07:53 EKG [ELECTROCARDIOGRAM] Stat Comment: Reason For Exam: followup, tylenol OD 02/27/17 05:00 EKG [ELECTROCARDIOGRAM] DAILY Comment: Reason For Exam: followup. tylenol toxicity Critical Care Progress Note - Nutrition Nutrition: Nutrition Category Date Time Status Heart Healthy Diet [DIET] Diets 02/26/17 Breakfast Ordered Addendum Addendum: 02/26/17 13:51 patient seen, examined and discussed shoulder to shoulder at bedside with dr. Krishna. her note reflects my exam, assessment and plan, except as below. Meds/ Labs/ONE reviewed 26 yo with mild acute APAP overdose. No acute or fulminant liver failure. Low MELD score. Mucomyst is going. Will continue with serial coags, lfts, APAP level and vbg. Spoke with Dr. Schaffer--no need for transplant eval at present time. ccm time 40 min
[2017-02-26 07:44] LABS: ARTERIAL BLOOD GAS HCO3 21.9 mmol/L (21-28); ARTERIAL BLOOD GAS PH 7.38 (7.35-7.45)
--- NOTE | 2017-02-26 08:38 | CARD ---
APPROVED REPORT EKG Measurement Heart [id number] <Conclusion> Sinus bradycardia Otherwise normal ECG
--- NOTE | 2017-02-26 08:41 | CARD ---
APPROVED REPORT EKG Measurement Heart [id number] OK 160P50 [id number] <Conclusion> Sinus bradycardia Otherwise normal ECG
[2017-02-26 11:32] LABS: INR 1.16 (0.93-1.08)
[2017-02-26 11:38] LABS: ALB/GLOB RATIO 1.1 (1.1-1.8); ALKALINE PHOSPHATASE 43 U/L (38-133); ALT/SGPT 8 U/L (7-56); AST/SGOT 18 U/L (15-39); BILIRUBIN,TOTAL 0.5 mg/dL (0.2-1.3); BLOOD UREA NITROGEN 7 mg/dL (7-21); CARBON DIOXIDE 20 mmol/L (21-33); CHLORIDE 107 mmol/L (98-107); GFR AFRICAN-AMERICAN > 60; GLUCOSE,RANDOM 80 mg/dL (70-110); POTASSIUM 3.8 mmol/L (3.6-5.0); SODIUM 143 mmol/L (132-148); TOTAL PROTEIN 7.5 g/dL (5.8-8.3)
[2017-02-26 14:24] LABS: VENOUS BLOOD GAS BASE EXCESS -3.4 mmol/L (0.0-2.0); VENOUS BLOOD PH 7.29 (7.32-7.43)
[2017-02-26 14:29] LABS: INR 1.14 (0.93-1.08)
--- NOTE | 2017-02-26 15:46 | CON ---
DATE: 02/26/2017 REQUESTING PHYSICIAN: Dr. Justice Dumont REASON FOR CONSULTATION: I have been asked to see this 26-year-old female who comes to the hospital with severe menstrual cramps. The patient took 3 Midol, which contain 500 mg of acetaminophen each a s well as 5 Advil without improvement in her pain. A serum acetaminophen level was obtained in the E mergency Room and this was found to be elevated at 54. A followup acetaminophen level at 6 a.m. this morning was 24 and repeat at 11 was less than 10. Her liver enzymes continue to be normal. The pat ient states that she did not intentionally take an overdose of acetaminophen, but was just trying to control her menstrual cramps. She has no prior history of liver disease. She has no history of suic power attempts or gestures. PAST MEDICAL HISTORY: Unremarkable. PAST SURGICAL HISTORY: Unremarkable. She denies cigarette smoking or alcohol use. FAMILY HISTORY: Noncontributory. PHYSICAL EXAMINATION: GENERAL: Well-developed female, somewhat irritable, in no acute distress. VITAL SIGNS: Reveal temperature of 98.2, blood pressure 111/55, heart rate of 58. HEENT: Reveal sclerae to be white, conjunctivae pink. NECK: Supple. CHEST: Lungs are clear. HEART: Reveals a regular rate and rhythm. ABDOMEN: Soft, nontender. EXTREMITIES: Show no edema. LABORATORY DATA: Reveal normal AST, ALT, alkaline phosphatase. Her acetaminophen level from 11:00 i s less than 10. CBC is normal. IMPRESSION: A 26-year-old female with unintentional Tylenol overdose in an attempt to control her me nstrual cramps. Her Tylenol level now is less than 10. Her liver enzymes are normal. She has recei felipe Mucomyst as treatment for Tylenol overdose. RECOMMENDATIONS: 1. To complete the doses of Mucomyst. 2. Repeat liver enzymes. If they are normal, patient can be discharged home with outpatient followu p. Gomez Schaffer MD cc: 79 TT: 02/26/2017 15:45:50 Confirmation # [id number] Dictation # [id number]
[2017-02-26 16:28] LABS: VENOUS BLOOD GAS BASE EXCESS -3.1 mmol/L (0.0-2.0); VENOUS BLOOD PH 7.36 (7.32-7.43)
[2017-02-26 16:33] LABS: INR 1.12 (0.93-1.08)
[2017-02-26 16:36] LABS: ALB/GLOB RATIO 1.1 (1.1-1.8); ALKALINE PHOSPHATASE 50 U/L (38-133); ALT/SGPT 12 U/L (7-56); AST/SGOT 15 U/L (15-39); BILIRUBIN,TOTAL 0.3 mg/dL (0.2-1.3); BLOOD UREA NITROGEN 11 mg/dL (7-21); CALCIUM 8.8 mg/dL (8.4-10.5); CARBON DIOXIDE 21 mmol/L (21-33); CHLORIDE 110 mmol/L (98-107); GFR AFRICAN-AMERICAN > 60; GLUCOSE,RANDOM 99 mg/dL (70-110); POTASSIUM 4.2 mmol/L (3.6-5.0); SODIUM 138 mmol/L (132-148); TOTAL PROTEIN 6.7 g/dL (5.8-8.3)
[2017-02-27 00:03] LABS: INR 1.06 (0.93-1.08)
[2017-02-27 00:34] LABS: ALB/GLOB RATIO 1.2 (1.1-1.8); ALKALINE PHOSPHATASE 55 U/L (38-133); ALT/SGPT 18 U/L (7-56); AST/SGOT 16 U/L (15-39); BILIRUBIN,TOTAL 0.3 mg/dL (0.2-1.3); BLOOD UREA NITROGEN 10 mg/dL (7-21); CALCIUM 9.1 mg/dL (8.4-10.5); CARBON DIOXIDE 22 mmol/L (21-33); CHLORIDE 107 mmol/L (95-110); GFR AFRICAN-AMERICAN > 60; GLUCOSE,RANDOM 65 mg/dL (70-110); POTASSIUM 4.5 mmol/L (3.6-5.0); SODIUM 139 mmol/L (132-148)
[2017-02-27] MEDS: Sodium Chloride 0.9% 1,000 ML IV SCH (05:42)
[2017-02-27 05:54] LABS: ADD MANUAL DIFF? NO
[2017-02-27 06:01] LABS: BASO # 0.03 K/mm3 (0.0-2.0); BASO % 0.5 % (0.0-3.0); EOS # 0.1 (0.0-0.7); GRAN # 2.93 (1.4-6.5); GRAN % 46.5 % (50.0-68.0); HEMATOCRIT 35.5 % (36.0-48.0); LYMPH # 2.9 (1.2-3.4); LYMPH % 45.8 % (22.0-35.0); MEAN CELL VOLUME 89.6 fL (80.0-105.0); MEAN CORPUSCULAR HEMOGLOBIN 30.6 pg (25.0-35.0); MEAN CORPUSCULAR HGB CONC 34.1 g/dl (31.0-37.0); MEAN PLATELET VOLUME 9.4 fl (7.0-11.0); MONO # 0.4 (0.1-0.6); MONO % 6.2 % (1.0-6.0); PLATELET COUNT 299 10^3/uL (120.0-450.0); RED CELL DISTRIBUTION WIDTH 13.4 % (11.5-14.5); WHITE BLOOD COUNT 6.3 10^3/ul (4.5-11.0)
[2017-02-27 06:10] LABS: INR 1.08 (0.93-1.08)
[2017-02-27 06:11] LABS: VENOUS BLOOD GAS BASE EXCESS -5.2 mmol/L (0.0-2.0); VENOUS BLOOD PH 7.25 (7.32-7.43)
[2017-02-27 06:36] LABS: ALB/GLOB RATIO 1.2 (1.1-1.8); ALKALINE PHOSPHATASE 59 U/L (38-133); ALT/SGPT 19 U/L (7-56); AST/SGOT 15 U/L (15-39); BILIRUBIN,DIRECT 0.3 mg/dL (0.0-0.4); BILIRUBIN,TOTAL 0.3 mg/dL (0.2-1.3); BLOOD UREA NITROGEN 10 mg/dL (7-21); CARBON DIOXIDE 22 mmol/L (21-33); CHLORIDE 108 mmol/L (95-110); GFR AFRICAN-AMERICAN > 60; GLUCOSE,RANDOM 79 mg/dL (70-110); MAGNESIUM 1.8 mg/dL (1.7-2.2); PHOSPHOROUS 3.4 mg/dL (2.5-4.5); POTASSIUM 4.3 mmol/L (3.6-5.0); SODIUM 141 mmol/L (132-148)
[2017-02-27 09:06] VITALS: TEMP 97.4
[2017-02-27 09:07] VITALS: BP 125/77; PULSE 89; RESP 21; O2SAT 98
--- NOTE | 2017-02-27 09:38 | CP.CCUPN ---
CCU Subjective - Physician Review Critical Care Time Spent (in minutes): 30 CCU Objective - Vital Signs / Intake & Output Vital Signs (Last 4 hours): Vital Signs Temp Pulse Resp BP Pulse Ox 02/27/17 08:00 97.4 F L 89 21 125/77 98 02/27/17 07:00 52 L 16 136/61 100 02/27/17 06:00 52 L 23 112/50 L 100 Intake and Output (Last 8hrs): Intake & Output 02/26/17 02/27/17 02/27/17 22:59 06:59 14:59 Intake Total 2730 2360 Output Total 2400 1400 Balance 330 960 Intake: IV 1500 1860 Right Antecubital 1500 1860 Oral 480 500 Other 750 Output: Urine 2400 1400 Urine, Voided 2400 1400 Other: # Voids Urine, Voided 6 - Physical Exam Head: Positive for: Atraumatic, Normocephalic Pupils: Positive for: PERRL Extroacular Muscles: Positive for: EOMI Conjunctiva: Positive for: Normal Mouth: Positive for: Moist Mucous Membranes Neck: Positive for: Normal Range of Motion Respiratory/Chest: Positive for: Clear to Auscultation, Good Air Exchange. Negative for: Respiratory Distress, Accessory Muscle Use Cardiovascular: Positive for: Regular Rate and Rhythm, Normal S1, S2. Negative for: Murmurs Abdomen: Positive for: Normal Bowel Sounds. Negative for: Tenderness, Distention, Peritoneal Signs Back: Positive for: Normal Inspection Upper Extremity: Positive for: Normal Inspection. Negative for: Cyanosis, Edema Lower Extremity: Positive for: Normal Inspection. Negative for: Edema Neurological: Positive for: GCS=15, CN II-XII Intact, Speech Normal Skin: Positive for: Warm, Dry, Normal Color. Negative for: Rashes Psychiatric: Positive for: Alert, Oriented x 3, Normal Insight, Normal Concentration - Medications Active Medications: Active Medications Generic Name Dose Route Start Last Admin Trade Name Freq PRN Reason Stop Dose Admin Sodium Chloride 1,000 mls @ 125 mls/hr 02/26/17 03:15 02/27/17 05:42 Sodium Chloride 0.9% IV 125 mls/hr .Q8H GARCIA Administration Ketorolac Tromethamine 15 mg 02/26/17 12:02 Toradol IVP DAILY PRN Pain, severe (8-10) Pantoprazole Sodium 40 mg 02/26/17 10:00 02/26/17 09:13 Protonix Inj IVP 40 mg DAILY GARCIA Administration - Patient Studies Lab Studies: Lab Studies 02/27/17 02/26/17 02/26/17 Range/Units 05:30 23:30 16:15 WBC 6.3 (4.5-11.0) 10^3/ul RBC 3.96 (3.5-6.1) 10^6/uL Hgb 12.1 (12.0-16.0) gm/dL Hct 35.5 L (36.0-48.0) % MCV 89.6 (80.0-105.0) fL MCH 30.6 (25.0-35.0) pg MCHC 34.1 (31.0-37.0) g/dl RDW 13.4 (11.5-14.5) % Plt Count 299 (120.0-450.0) 10^3/uL MPV 9.4 (7.0-11.0) fl Gran % 46.5 L (50.0-68.0) % Lymph % (Auto) 45.8 H (22.0-35.0) % Rolette % (Auto) 6.2 H (1.0-6.0) % Eos % (Auto) 1.0 L (1.5-5.0) % Baso % (Auto) 0.5 (0.0-3.0) % Gran # 2.93 (1.4-6.5) Lymph # 2.9 (1.2-3.4) Rolette # 0.4 (0.1-0.6) Eos # 0.1 (0.0-0.7) Baso # 0.03 (0.0-2.0) K/mm3 PT 11.7 11.5 12.1 H (9.9-11.8) Seconds INR 1.08 1.06 1.12 H (0.93-1.08) pO2 79 H 60 H (30-55) mm/Hg VBG pH 7.25 L 7.36 (7.32-7.43) VBG pCO2 51.0 39.0 L (40-60) VBG HCO3 22.4 22.0 (21-28) mmol/l VBG Total CO2 24.0 23.2 (22-28) mmol.L VBG O2 Sat (Calc) 97.5 H 93.0 H (40-65) % VBG Base Excess -5.2 L -3.1 L (0.0-2.0) mmol/L VBG Potassium 4.0 4.3 (3.6-5.2) mmol/L Glucose 78 99 (65-105) mg/dl Lactate 1.7 1.1 (0.7-2.1) mmol/L FiO2 21.0 21.0 % Sodium 138.0 139 140.0 (132-148) mmol/L Potassium 4.3 4.5 4.2 (3.6-5.0) mmol/L Chloride 111.0 H 107 113.0 H (98-107) mmol/L Carbon Dioxide 22 22 21 (21-33) mmol/L Anion Gap 15 15 11 (10-20) BUN 10 10 11 (7-21) mg/dL Creatinine 0.7 0.8 0.7 (0.5-1.4) mg/dL Est GFR ( Amer) > 60 > 60 > 60 Est GFR (Non-Af Amer) > 60 > 60 > 60 POC Glucose (mg/dL) (65-110) mg/dL Random Glucose 79 65 L 99 (70-110) mg/dL Calcium 9.0 9.1 8.8 (8.4-10.5) mg/dL Phosphorus 3.4 (2.5-4.5) mg/dL Magnesium 1.8 (1.7-2.2) mg/dL Total Bilirubin 0.3 0.3 0.3 (0.2-1.3) mg/dL Direct Bilirubin 0.3 (0.0-0.4) mg/dL AST 15 16 15 (15-39) U/L ALT 19 18 12 (7-56) U/L Alkaline Phosphatase 59 55 50 (38-133) U/L Total Protein 7.0 7.0 6.7 (5.8-8.3) g/dL Albumin 3.8 3.8 3.5 (3.0-4.8) g/dL Globulin 3.2 3.2 3.2 gm/dL Albumin/Globulin Ratio 1.2 1.2 1.1 (1.1-1.8) TSH 3rd Generation (0.46-4.68) mIU/mL Venous Blood Potassium 4.0 4.3 (3.6-5.2) mmol/L Acetaminophen < 10.0 L < 10.0 L < 10.0 L (10.0-20.0) ug/ml 02/26/17 02/26/17 02/26/17 Range/Units 14:00 11:34 11:14 WBC (4.5-11.0) 10^3/ul RBC (3.5-6.1) 10^6/uL Hgb (12.0-16.0) gm/dL Hct (36.0-48.0) % MCV (80.0-105.0) fL MCH (25.0-35.0) pg MCHC (31.0-37.0) g/dl RDW (11.5-14.5) % Plt Count (120.0-450.0) 10^3/uL MPV (7.0-11.0) fl Gran % (50.0-68.0) % Lymph % (Auto) (22.0-35.0) % Rolette % (Auto) (1.0-6.0) % Eos % (Auto) (1.5-5.0) % Baso % (Auto) (0.0-3.0) % Gran # (1.4-6.5) Lymph # (1.2-3.4) Rolette # (0.1-0.6) Eos # (0.0-0.7) Baso # (0.0-2.0) K/mm3 PT 12.3 H 12.5 H (9.9-11.8) Seconds INR 1.14 H 1.16 H (0.93-1.08) pO2 44 (30-55) mm/Hg VBG pH 7.29 L (7.32-7.43) VBG pCO2 49.0 (40-60) VBG HCO3 23.6 (21-28) mmol/l VBG Total CO2 25.1 (22-28) mmol.L VBG O2 Sat (Calc) 80.5 H (40-65) % VBG Base Excess -3.4 L (0.0-2.0) mmol/L VBG Potassium 3.9 (3.6-5.2) mmol/L Glucose 90 (65-105) mg/dl Lactate 1.6 (0.7-2.1) mmol/L FiO2 21.0 % Sodium 140.0 143 (132-148) mmol/L Potassium 3.8 (3.6-5.0) mmol/L Chloride 113.0 H 107 (98-107) mmol/L Carbon Dioxide 20 L (21-33) mmol/L Anion Gap 20 (10-20) BUN 7 (7-21) mg/dL Creatinine 0.6 (0.5-1.4) mg/dL Est GFR ( Amer) > 60 Est GFR (Non-Af Amer) > 60 POC Glucose (mg/dL) 95 (65-110) mg/dL Random Glucose 80 (70-110) mg/dL Calcium 9.0 (8.4-10.5) mg/dL Phosphorus (2.5-4.5) mg/dL Magnesium (1.7-2.2) mg/dL Total Bilirubin 0.5 (0.2-1.3) mg/dL Direct Bilirubin (0.0-0.4) mg/dL AST 18 (15-39) U/L ALT 8 (7-56) U/L Alkaline Phosphatase 43 (38-133) U/L Total Protein 7.5 (5.8-8.3) g/dL Albumin 3.9 (3.0-4.8) g/dL Globulin 3.7 gm/dL Albumin/Globulin Ratio 1.1 (1.1-1.8) TSH 3rd Generation 1.62 (0.46-4.68) mIU/mL Venous Blood Potassium 3.9 (3.6-5.2) mmol/L Acetaminophen < 10.0 L < 10.0 L (10.0-20.0) ug/ml Laboratory Results - last 24 hr 02/26/17 02/26/17 02/26/17 11:14 11:34 14:00 WBC RBC Hgb Hct MCV MCH MCHC RDW Plt Count MPV Gran % Lymph % (Auto) Rolette % (Auto) Eos % (Auto) Baso % (Auto) Gran # Lymph # Rolette # Eos # Baso # PT 12.5 H 12.3 H INR 1.16 H 1.14 H pO2 44 VBG pH 7.29 L VBG pCO2 49.0 VBG HCO3 23.6 VBG Total CO2 25.1 VBG O2 Sat (Calc) 80.5 H VBG Base Excess -3.4 L VBG Potassium 3.9 Glucose 90 Lactate 1.6 FiO2 21.0 Sodium 143 140.0 Potassium 3.8 Chloride 107 113.0 H Carbon Dioxide 20 L Anion Gap 20 BUN 7 Creatinine 0.6 Est GFR ( Amer) > 60 Est GFR (Non-Af Amer) > 60 POC Glucose (mg/dL) 95 Random Glucose 80 Calcium 9.0 Phosphorus Magnesium Total Bilirubin 0.5 Direct Bilirubin AST 18 ALT 8 Alkaline Phosphatase 43 Total Protein 7.5 Albumin 3.9 Globulin 3.7 Albumin/Globulin Ratio 1.1 TSH 3rd Generation 1.62 Venous Blood Potassium 3.9 Acetaminophen < 10.0 L < 10.0 L 02/26/17 02/26/17 02/27/17 16:15 23:30 05:30 WBC 6.3 RBC 3.96 Hgb 12.1 Hct 35.5 L MCV 89.6 MCH 30.6 MCHC 34.1 RDW 13.4 Plt Count 299 MPV 9.4 Gran % 46.5 L Lymph % (Auto) 45.8 H Rolette % (Auto) 6.2 H Eos % (Auto) 1.0 L Baso % (Auto) 0.5 Gran # 2.93 Lymph # 2.9 Rolette # 0.4 Eos # 0.1 Baso # 0.03 PT 12.1 H 11.5 11.7 INR 1.12 H 1.06 1.08 pO2 60 H 79 H VBG pH 7.36 7.25 L VBG pCO2 39.0 L 51.0 VBG HCO3 22.0 22.4 VBG Total CO2 23.2 24.0 VBG O2 Sat (Calc) 93.0 H 97.5 H VBG Base Excess -3.1 L -5.2 L VBG Potassium 4.3 4.0 Glucose 99 78 Lactate 1.1 1.7 FiO2 21.0 21.0 Sodium 138 139 141 Potassium 4.2 4.5 4.3 Chloride 110 H 107 108 Carbon Dioxide 21 22 22 Anion Gap 11 15 15 BUN 11 10 10 Creatinine 0.7 0.8 0.7 Est GFR ( Amer) > 60 > 60 > 60 Est GFR (Non-Af Amer) > 60 > 60 > 60 POC Glucose (mg/dL) Random Glucose 99 65 L 79 Calcium 8.8 9.1 9.0 Phosphorus 3.4 Magnesium 1.8 Total Bilirubin 0.3 0.3 0.3 Direct Bilirubin 0.3 AST 15 16 15 ALT 12 18 19 Alkaline Phosphatase 50 55 59 Total Protein 6.7 7.0 7.0 Albumin 3.5 3.8 3.8 Globulin 3.2 3.2 3.2 Albumin/Globulin Ratio 1.1 1.2 1.2 TSH 3rd Generation Venous Blood Potassium 4.3 4.0 Acetaminophen < 10.0 L < 10.0 L < 10.0 L EKG/Cardiology Studies: Cardiology / EKG Studies 02/27/17 05:00 EKG [ELECTROCARDIOGRAM] DAILY Comment: Reason For Exam: followup. tylenol toxicity Critical Care Progress Note - Nutrition Nutrition: Nutrition Category Date Time Status Heart Healthy Diet [DIET] Diets 02/26/17 Breakfast Ordered Assessment/Plan - Date & Time Date: 02/27/17 Time: 09:38
--- NOTE | 2017-02-27 10:49 | CP.PCM.DIS ---
Provider - Provider Date of Admission: 02/26/17 03:29 Attending physician: Irma Oliva MD Time Spent in preparation of Discharge (in minutes): 35 Diagnosis - Discharge Diagnosis (1) Acetaminophen overdose Status: Acute Hospital Course - Lab Results Lab Results: Most Recent Lab Values WBC 6.3 10^3/ul (4.5-11.0) 02/27/17 05:30 RBC 3.96 10^6/uL (3.5-6.1) 02/27/17 05:30 Hgb 12.1 gm/dL (12.0-16.0) 02/27/17 05:30 Hct 35.5 % (36.0-48.0) L 02/27/17 05:30 MCV 89.6 fL (80.0-105.0) 02/27/17 05:30 MCH 30.6 pg (25.0-35.0) 02/27/17 05:30 MCHC 34.1 g/dl (31.0-37.0) 02/27/17 05:30 RDW 13.4 % (11.5-14.5) 02/27/17 05:30 Plt Count 299 10^3/uL (120.0-450.0) 02/27/17 05:30 MPV 9.4 fl (7.0-11.0) 02/27/17 05:30 Gran % 46.5 % (50.0-68.0) L 02/27/17 05:30 Lymph % (Auto) 45.8 % (22.0-35.0) H 02/27/17 05:30 [place] % (Auto) 6.2 % (1.0-6.0) H 02/27/17 05:30 Eos % (Auto) 1.0 % (1.5-5.0) L 02/27/17 05:30 Baso % (Auto) 0.5 % (0.0-3.0) 02/27/17 05:30 Gran # 2.93 (1.4-6.5) 02/27/17 05:30 Lymph # 2.9 (1.2-3.4) 02/27/17 05:30 [place] # 0.4 (0.1-0.6) 02/27/17 05:30 Eos # 0.1 (0.0-0.7) 02/27/17 05:30 Baso # 0.03 K/mm3 (0.0-2.0) 02/27/17 05:30 PT 11.7 Seconds (9.9-11.8) 02/27/17 05:30 INR 1.08 (0.93-1.08) 02/27/17 05:30 pCO2 37 mm/Hg (35-45) 02/26/17 07:39 pO2 79 mm/Hg (30-55) H 02/27/17 05:30 HCO3 21.9 mmol/L (21-28) 02/26/17 07:39 ABG pH 7.38 (7.35-7.45) 02/26/17 07:39 ABG Total CO2 23.0 mmol.L (22-28) 02/26/17 07:39 ABG O2 Saturation 99.2 % (95-98) H 02/26/17 07:39 ABG Base Excess -2.8 mmol/L (-2.0-3.0) L 02/26/17 07:39 ABG Potassium 3.4 mmol/L (3.6-5.2) L 02/26/17 07:39 VBG pH 7.25 (7.32-7.43) L 02/27/17 05:30 VBG pCO2 51.0 (40-60) 02/27/17 05:30 VBG HCO3 22.4 mmol/l (21-28) 02/27/17 05:30 VBG Total CO2 24.0 mmol.L (22-28) 02/27/17 05:30 VBG O2 Sat (Calc) 97.5 % (40-65) H 02/27/17 05:30 VBG Base Excess -5.2 mmol/L (0.0-2.0) L 02/27/17 05:30 VBG Potassium 4.0 mmol/L (3.6-5.2) 02/27/17 05:30 Sodium 138.0 mmol/L (132-148) 02/27/17 05:30 Chloride 111.0 mmol/L (98-107) H 02/27/17 05:30 Glucose 78 mg/dl (65-105) 02/27/17 05:30 Lactate 1.7 mmol/L (0.7-2.1) 02/27/17 05:30 FiO2 21.0 % 02/27/17 05:30 Sodium 141 mmol/L (132-148) 02/27/17 05:30 Potassium 4.3 mmol/L (3.6-5.0) 02/27/17 05:30 Chloride 108 mmol/L (95-110) 02/27/17 05:30 Carbon Dioxide 22 mmol/L (21-33) 02/27/17 05:30 Anion Gap 15 (10-20) 02/27/17 05:30 BUN 10 mg/dL (7-21) 02/27/17 05:30 Creatinine 0.7 mg/dL (0.5-1.4) 02/27/17 05:30 Est GFR ( Amer) > 60 02/27/17 05:30 Est GFR (Non-Af Amer) > 60 02/27/17 05:30 POC Glucose (mg/dL) 95 mg/dL (65-110) 02/26/17 11:34 Random Glucose 79 mg/dL (70-110) 02/27/17 05:30 Calcium 9.0 mg/dL (8.4-10.5) 02/27/17 05:30 Phosphorus 3.4 mg/dL (2.5-4.5) 02/27/17 05:30 Magnesium 1.8 mg/dL (1.7-2.2) 02/27/17 05:30 Total Bilirubin 0.3 mg/dL (0.2-1.3) 02/27/17 05:30 Direct Bilirubin 0.3 mg/dL (0.0-0.4) 02/27/17 05:30 AST 15 U/L (15-39) 02/27/17 05:30 ALT 19 U/L (7-56) 02/27/17 05:30 Alkaline Phosphatase 59 U/L (38-133) 02/27/17 05:30 Total Protein 7.0 g/dL (5.8-8.3) 02/27/17 05:30 Albumin 3.8 g/dL (3.0-4.8) 02/27/17 05:30 Globulin 3.2 gm/dL 02/27/17 05:30 Albumin/Globulin Ratio 1.2 (1.1-1.8) 02/27/17 05:30 TSH 3rd Generation 1.62 mIU/mL (0.46-4.68) 02/26/17 11:14 Arterial Blood Potassium 3.4 mmol/L (3.6-5.2) L 02/26/17 07:39 Venous Blood Potassium 4.0 mmol/L (3.6-5.2) 02/27/17 05:30 Urine Color Yellow (YELLOW) 02/26/17 01:50 Urine Appearance Clear (CLEAR) 02/26/17 01:50 Urine pH 6.0 (4.7-8.0) 02/26/17 01:50 Ur Specific [place] 1.025 (1.005-1.035) 02/26/17 01:50 Urine Protein Negative mg/dL (<30 mg/dL) 02/26/17 01:50 Urine Glucose (UA) Negative mg/dL (NEGATIVE) 02/26/17 01:50 Urine Ketones Negative mg/dL (NEGATIVE) 02/26/17 01:50 Urine Blood Moderate (NEGATIVE) H 02/26/17 01:50 Urine Nitrate Negative (NEGATIVE) 02/26/17 01:50 Urine Bilirubin Negative (NEGATIVE) 02/26/17 01:50 Urine Urobilinogen 0.2 E.U./dL (<1 E.U./dL) 02/26/17 01:50 Ur Leukocyte Esterase Negative [place]/uL (NEGATIVE) 02/26/17 01:50 Urine RBC 0 - 2 /hpf (0-2) 02/26/17 01:50 Urine WBC 1 - 3 /hpf (0-6) 02/26/17 01:50 Ur Epithelial Cells 3 - 4 /hpf (0-5) 02/26/17 01:50 Urine Bacteria Small (NEG) 02/26/17 01:50 Urine HCG, Qual Negative (NEGATIVE) 02/26/17 01:50 Salicylates < 1 mg/dL (2.0-20.0) L 02/26/17 02:00 Urine Opiates Screen Negative (NEGATIVE) 02/26/17 01:50 Urine Methadone Screen Negative (NEGATIVE) 02/26/17 01:50 Acetaminophen < 10.0 ug/ml (10.0-20.0) L 02/27/17 05:30 Ur Barbiturates Screen Negative (NEGATIVE) 02/26/17 01:50 Ur Phencyclidine Scrn Negative (NEGATIVE) 02/26/17 01:50 Ur Amphetamines Screen Negative (NEGATIVE) 02/26/17 01:50 U Benzodiazepines Scrn Negative (NEGATIVE) 02/26/17 01:50 U Oth Cocaine Metabols Negative (NEGATIVE) 02/26/17 01:50 U Cannabinoids Screen Negative (NEGATIVE) 02/26/17 01:50 Alcohol, Quantitative < 10 mg/dL (0-10) 02/26/17 02:00 - Date & Time of H&P Date of H&P: 02/27/17 Time of H&P: 07:50 Discharge Exam - Head Exam Head Exam: ATRAUMATIC, NORMAL INSPECTION, NORMOCEPHALIC - Eye Exam Eye Exam: EOMI, Normal appearance - ENT Exam ENT Exam: Mucous Membranes Moist - Neck Exam Neck exam: Full Rom - Respiratory Exam Respiratory Exam: Clear to PA & Lateral, NORMAL BREATHING PATTERN, UNREMARKABLE. absent: Wheezes, Respiratory Distress - Cardiovascular Exam Cardiovascular Exam: REGULAR RHYTHM, RRR, +S1, +S2. absent: JVD - GI/Abdominal Exam GI & Abdominal Exam: Normal Bowel Sounds, Soft, Unremarkable. absent: Organomegaly, Tenderness - Rectal Exam Rectal Exam: NORMAL INSPECTION - Extremities Exam Extremities exam: full ROM - Back Exam Back exam: absent: CVA tenderness (L), CVA tenderness (R), paraspinal tenderness - Neurological Exam Neurological exam: Alert, Normal Gait, Oriented x3 - Psychiatric Exam Psychiatric exam: Normal Affect, Normal Mood - Skin Skin Exam: Dry, Intact, Normal Color, Warm Discharge Plan - Follow Up Plan Condition: SERIOUS Disposition: HOME/ ROUTINE Instructions: Acetaminophen Overdose (DC), Acetaminophen Overdose (GEN) Additional Instructions: Pt. is medically stable for discharge. [facility] next week. Please call them at [phone], today to schedule your appointment. The clinic is open M-F from 8am-4:00pm. Thank you for allowing us to take part in your healthcare.
--- NOTE | 2017-02-27 19:00 | CARD ---
APPROVED REPORT EKG Measurement Heart [id number] <Conclusion> Sinus bradycardia with marked sinus arrhythmia Otherwise normal ECG
== END 2017-02-27 12:23 | disposition home or self-care (01) | DRG 918 ==
LOC: ED 00:51 → ERH 03:29 → CCU 04:02
PROVIDERS: ADMIT Hospitalist; ATTEND Internal Medicine
DX: T39.1X1A Poisoning by 4-Aminophenol derivatives, accidental (unintentional), initial encounter (principal); N94.6 Dysmenorrhea, unspecified; Y92.9 Unspecified place or not applicable